=== PATIENT | female | born 1995 | race Asian ===

== ENCOUNTER 2016-05-02 20:39 | Emergency (ER) | payer OTHER ==
[~2016-05-02] VITALS: Ht 162.6 cm; Wt 84.4 kg
[~2016-05-02 20:39] MED LIST: SEIZURE MED; ZYRTEC10 MG PO
[2016-05-02 20:46] VITALS: BP 147/77
--- NOTE | 2016-05-02 22:30 | NUR ---
PT TAKEN TO BED 7
--- NOTE | 2016-05-02 22:55 | NUR ---
Dr. Naqvi evaluating patient at bedside.
--- NOTE | 2016-05-02 22:56 | NUR ---
20Y/F PATIENT PRESENTS TO ED WITH C/O VAGINAL BLEEDING X 1 WK. PT STATES SHE HAD TERMINATION PROCEDURE LAST FRIDAY, TODAY CHANGE 2 PADS. DENIES N/V/D; SKIN IS PINK/WARM/DRY; AAOX4 WITH EVEN AND STEADY GAIT; LUNGS CLEAR BL; HR EVEN AND REGULAR; PT DENIES ANY FEVER, CP, SOB, OR COUGH AT THIS TIME; PATIENT STATES PAIN OF 10/10 AT THIS TIME; VSS; PATIENT POSITIONED FOR COMFORT; HOB ELEVATED; BEDRAILS UP X2; BED DOWN. ER MD MADE AWARE OF PT STATUS.
--- NOTE | 2016-05-03 00:01 | NUR ---
Ultrasound at bedside.
--- NOTE | 2016-05-03 00:30 | NUR ---
Female Focus Puller accompanied female patient for Pelvic Exam WITH DR. SALINAS
--- NOTE | 2016-05-03 00:37 | NUR ---
DR. FORBES AT BEDSIDE WITH FEMALE SOCIAL WELFARE RESEARCH WORKER EDER MCKEON FOR PELVIC EXAM
--- NOTE | 2016-05-03 01:50 | NUR ---
Patient discharged with v/s stable. Written and verbal after care instructions given and explained. Patient verbalized understanding. Ambulatory with steady gait. All questions addressed prior to discharge. Advised to follow up with PMD.
[2016-05-03 01:52] VITALS: BP 130/70
== END 2016-05-03 01:50 | disposition home or self-care (01) ==
LOC: MED 20:39
DX: N93.9 Abnormal uterine and vaginal bleeding, unspecified (principal); Z88.5 Allergy status to narcotic agent
CPT/HCPCS: 36415; 76830; 76856; 81001; 81025; 84702; 85025; 87070; 87086; 99285; Q0092